=== PATIENT | female | born 1970 | race Caucasian/White ===

== ENCOUNTER 2020-04-16 09:16 | Emergency (ER) | payer OTHER ==
[2020-04-16] MEDS ORDERED: Take Home: Gentamicin 0.3% Ophth Soln 5 ML, 1 Bottle Pack EYEBOTH ONE (09:48)
--- NOTE | 2020-04-16 12:07 | EDM.PDOC ---
ED HPI GENERAL MEDICAL PROBLEM - General Chief Complaint: Eye Problems Stated Complaint: PINK EYE Time Seen by Provider: 04/16/20 09:25 Source of Information: Reports: Patient History Limitations: Reports: No Limitations - History of Present Illness INITIAL COMMENTS - FREE TEXT/NARRATIVE: Pt. presents to ER with complaints of bilateral redness, watering, and irritation to both eyes. Pt. states that she woke with the symptoms. Denies any known injury. She has not been grinding, using any fume-containing products, or welding. She states that she does have some associated congestion/rhinorrhea. She states that her eyes were extremely watery today. She states that a coworker has been exposed to viral conjunctivitis recently. Onset: Today Onset Date: 04/16/20 Location: Reports: Face Quality: Reports: Burning - Related Data Allergies Allergy/AdvReac Type Severity Reaction Status Date / Time bee pollen Allergy Cannot Verified 04/16/20 09:32 Remember latex Allergy Cannot Verified 04/16/20 09:32 Remember Home Meds: Home Meds . [No Known Home Meds] 04/16/20 [History] Past Medical History - Past Surgical History Female Surgical History: Reports: Hysterectomy Social & Family History - Tobacco Use Tobacco Use Status *Q: Current Every Day Tobacco User Years of Tobacco use: 35 Packs/Tins Daily: 0.5 - Alcohol Use Days Per Week of Alcohol Use: 4 Number of Drinks Per Day: 3 Total Drinks Per Week: 12 - Recreational Drug Use Recreational Drug Use: No ED ROS GENERAL - Review of Systems Review Of Systems: See Below Constitutional: Reports: No Symptoms HEENT: Reports: Eye Discharge, Rhinitis, Other (eye irritation) Respiratory: Reports: No Symptoms Cardiovascular: Reports: No Symptoms Endocrine: Reports: No Symptoms GI/Abdominal: Reports: No Symptoms : Reports: No Symptoms Musculoskeletal: Reports: No Symptoms Skin: Reports: No Symptoms Neurological: Reports: No Symptoms Psychiatric: Reports: No Symptoms Hematologic/Lymphatic: Reports: No Symptoms Immunologic: Reports: No Symptoms ED EXAM, GENERAL - Physical Exam Exam: See Below Exam Limited By: No Limitations General Appearance: Alert, WD/WN, No Apparent Distress Eye Exam: Bilateral Eye: Conjunctival Injection, EOMI, Normal Fundi, PERRL Throat/Mouth: Normal Inspection, Normal Lips, Normal Teeth, Normal Gums, Normal Oropharynx, Normal Voice, No Airway Compromise Head: Atraumatic, Normocephalic Neck: Normal Inspection, Supple, Non-Tender, Full Range of Motion Skin Exam: Warm, Dry, Intact, Normal Color, No Rash Course - Vital Signs Last Recorded V/S: Last Vital Signs Temp 36.6 C 04/16/20 09:25 Pulse 94 04/16/20 09:25 Resp 16 04/16/20 09:25 BP 123/84 04/16/20 09:25 Pulse Ox 99 04/16/20 09:25 - Orders/Labs/Meds Meds: Medications Discontinued Medications Generic Name Dose Route Start Last Admin Trade Name Rosa PRN Reason Stop Dose Admin Gentamicin Sulfate 1 packet 04/16/20 09:48 04/16/20 10:08 Take Home: Gentamicin 0.3% Ophth Soln, 1 Zainab EYEBOTH 04/16/20 09:49 1 packet ONETIME ONE Administration Departure - Departure Time of Disposition: 10:15 Disposition: Home, Self-Care 01 Clinical Impression: Conjunctivitis - Discharge Information Instructions: Viral Conjunctivitis, Adult Referrals: PCP,Not In Area [Primary Care Provider] - Forms: ED Department Discharge Additional Instructions: gentamycin drops 1 drop to each eye 5 times daily for 10 days Follow-up with eye doctor of choice if not gradually improving Return to ER if you have any vision loss or change Sepsis Event Note (ED) - Evaluation Sepsis Screening Result: No Definite Risk - Focused Exam Vital Signs: Vital Signs Temp Pulse Resp BP Pulse Ox 04/16/20 09:25 36.6 C 94 16 123/84 99 - Problem List Review Problem List Initiated/Reviewed/Updated: Yes - Assessment/Plan Plan: gentamycin drops 1 drop to each eye 5 times daily for 10 days Follow-up with eye doctor of choice if not gradually improving Return to ER if you have any vision loss or change
== END 2020-04-16 10:10 | disposition home or self-care (01) ==
LOC: VM.ED 09:16
DX: H10.9 Unspecified conjunctivitis (principal); F17.210 Nicotine dependence, cigarettes, uncomplicated; Z91.030 Bee allergy status; Z91.040 Latex allergy status
CPT/HCPCS: 99282; 99283; A9270-GY